=== PATIENT | male | born 1985 | race Caucasian/White ===

== ENCOUNTER 2025-10-03 15:41 | Emergency (ER) | payer OTHER, SELFPAY ==
[2025-10-03 16:26] VITALS: BP 145/90; PULSE 73; RESP 19; TEMP 36.7; O2SAT 99; BMI 25.9
--- NOTE | 2025-10-03 16:40 | EDNOTE_ITS ---
<Statement entered by Joan Radford MD - 10/25/25 06:02> As co-signing physician, I was present and available for consult prn. I concur with the plan and care as documented by the midlevel provider. ED Skin Abcess FB-RME/HPI General Chief complaint: Skin/Abscess/Foreign Body Stated complaint: PUNCTURE WOUND Time Seen by Provider: 10/03/25 16:40 Arrival date/time: 10/03/25 15:41 This is a 40-year-old male that comes into the emergency room with complaint of puncture wound to the right thumb. 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 Patient states that several other inmates had punctured their finger on the same manuel wire and he also cut himself on the manuel wire. Patient states he immediately cleaned the wound but is concerned because other inmates that could possibly have HIV or hepatitis also cut themselves in the same [place] wire. Patient would like prophylactic treatment for puncture exposure. Related Data Previous Rx's ?Medication ?Instructions ?Recorded doxycycline hyclate 100 mg tablet 100 mg PO BID #14 ta bs 10/03/25 emtricitabine 200 mg-tenofovir 1 tab PO QDAY #28 tabs 10/03/25 disoproxil fumarate 300 mg tablet (Truvada) raltegravir 400 mg tablet 400 mg PO BID 28 days #56 ta bs 10/03/25 Allergies Allergy/AdvReac Type Severity Reaction Status Date / Time No Known Allergies Allergy Verified 10/03/25 15:44 Review of Systems Review of Systems Systems Reviewed: All systems reviewed, normal except as documented Past Medical History Past Medical History Comments PMH COMMENT: Denies ED Exam Narrative Physical exam: VITAL SIGNS: Reviewed. GENERAL APPEARANCE: Alert and interactive, follows commands, no acute distress HEAD AND FACE: Non-traumatic. ENT: PERRL, conjuctiva pink and clear, eyelid no trauma, Mucous membrane moist. NECK: Supple, nontender, no nuchal rigidity. CHEST: No tenderness, no crepitus, no paradoxical movement, no retractions. LUNGS: breathing even and unlabored HEART: Regular rate, cap refill less than 2 seconds ABDOMEN: Soft NEUROLOGICAL: Gross motor function intact sensory function intact, Appropriate for age. MUSCULOSKELETAL: full range of motion. Ambulatory EXTREMITIES: No redness no swelling no skin breakdown on bilateral foot and leg. Distal neurovascular status intact bilateral foot SKIN: Color pink, dry, approximately 2 to 3 mm laceration superficial to right thumb. Course Quality Measures none Orders Category Date Time Status HIV RAPID [HIV (1&2) Antibody Rapid] Stat Lab 10/03/25 17:39 Completed Hepatitis Acute Panel Stat Lab 10/03/25 17:39 Completed Hepatitis B Core Antibody IgM Stat Lab 10/03/25 17:39 Received Hepatitis B Surface Antigen Stat Lab 10/03/25 17:39 Received Hepatitis C Antibody Stat Lab 10/03/25 17:39 Received EMTRICITABINE/TENOFOVIR Dspk#3 [Truvada Dspk #3] Med 10/03/25 17:17 Discontinued 1 dspk PO X1 ONE RALTEGRAVIR POTASSIUM Dspk#6 [Isentress Dspk#6] Med 10/03/25 18:15 Discontinued 1 tab PO X1 ONE TET,DIP/PERT AC (Adult)-Tdap [Boostrix Adult (Tdap) Med 10/03/25 17:13 Discontinued Vacc] 0.5 ml IMI .ONCE ONE Vital Signs Vital signs: Vital Signs Temperature 98.0 F 10/03/25 16:26 Pulse Rate 73 10/03/25 16:26 Respiratory Rate 19 10/03/25 16:26 Blood Pressure 145/90 H 10/03/25 16:26 Pulse Oximetry (%) 99 10/03/25 16:26 Oxygen Delivery Method Room Air 10/03/25 16:26 Skin / Abscess / Foreign Body MDM Narrative MDM Narrative:: Patient would like to be treated with prophylactic medication postexposure to possible HIV hepatitis. Spoke to pharmacy and clarified medications. Patient was given prophylactic exposure medication and also a tetanus shot. Patient told to follow-up with Worker's [employer]. I also gave patient prophylactic medication doxycycline for his finger. Patient verbalized understanding patient will follow-up with blood results with primary doctor. Dragon dictation: Although this document has been carefully reviewed, there may still be some phonetic and other typographical errors. These errors are purely grammatical due to imperfections in the software program and should not be construed in any way to compromise the substance of the patient's medical care during this visit. Patient data External records reviewed:: [facility] previous records Clinical information provided by:: patient Social determinants that could affect healthcare access:: none Patient has the following chronic illnesses:: see note How is presenting disease/condition affected by chronic disease/condition?: no chronic disease Evaluation data The following diagnostics were reviewed and interpreted by me:: other (specify) (none ) Lab and/or radiology exams considered but not ordered:: see note Interpretation Summary: see note Medications / Prescriptions Medications or Prescriptions considered but not ordered:: none Medication administrations:: Medication Administration History Discontinued Medications Diphtheria/Tetanus/Acell Pertussis (Diphth,Pertuss(Acell),Tet Vac 0.5 Ml Syr- Adult) 0.5 ml IMi .ONCE ONE Stop: 10/03/25 17:14 Last Admin: 10/03/25 17:57 Dose: 0.5 ml Documented By: PRIMO Emtricitabine/Tenofovir (Emtricitabine 200 Mg/Tenofovir 300 Mg Tab #3pk) 1 dspk PO X1 ONE Stop: 10/03/25 17:18 Last Admin: 10/03/25 18:04 Dose: 1 dspk Documented By: PRIMO Raltegravir (Raltegravir Potassium 400 Mg Tab #6pk) 1 tab PO X1 ONE Stop: 10/03/25 18:16 Last Admin: 10/03/25 18:12 Dose: 1 tab Documented By: PRIMO Comments: PT GIVEN 5 TABS TO TAKE HOME see mar Consultations Consultation(s) initiated? (list below): No Diagnosis Skin/Abscess Differential Diagnosis: cellulitis and other (puncture wound, abscess) Most likely diagnosis given after review of the tests above:: puncture wound Admission Indicated Admission indicated?: not indicated Admission Request Was there a request for admission?: No Disposition Plan Disposition Plan: Discharge Discharge Attestation Discharge Attestation: The patient and all family members were given an opportunity to ask questions and understood the discharge instructions. Discharge instructions specifically effects, indications for sooner follow up or return to the emergency department, and the expected course of current diagnosis. Patient condition: Stable Discharge Plan Plan Patient Disposition: HOME (Self Care) Patient condition on transfer: Stable Prescriptions/Referrals Prescriptions/Med Rec: New emtricitabine-tenofovir (TDF) [Truvada] 200-300 mg tablet 1 tab PO QDAY Qty: 28 0RF raltegravir 400 mg tablet 400 mg PO BID 28 Days Qty: 56 0RF doxycycline hyclate 100 mg tablet 100 mg PO BID Qty: 14 0RF Problem List Clinical Impression: Encounter for HIV pre-exposure prophylaxis Patient/Caregiver Discharge Instructions Discharge Activity: activity as tolerated Education Materials: Bloodborne Pathogens If You're ... Additional Instructions: Follow up with primary provider in 1-2 days. Come back to ED if symptoms change or worsen Print Language: Ug[place]an Stand Alone Forms: Mickie Award Info., Patient Portal Info Letter PA/AGATE SETTER Supervising Physician PA/AGATE SETTER Supervising Physician: [email or web address]
[2025-10-03] MEDS: DIPHTH,PERTUSS(ACELL),TET VAC 0.5 ML SYR- ADULT IMi (17:57)
[2025-10-03] MEDS: EMTRICITABINE 200 MG/TENOFOVIR 300 MG TAB #3PK 1 DSPK PO (18:04)
[2025-10-03] MEDS: RALTEGRAVIR POTASSIUM 400 MG TAB #6PK 1 TAB PO (18:12)
[2025-10-03 18:31] LABS: HIV (1&2) Antibody Rapid Non-Reactive
[2025-10-03 19:39] LABS: Hepatitis A Antibody IgM Non Reactive (Non React); Hepatitis B Core Antibody IgM Non Reactive (Non React); Hepatitis B Surface Antigen Non Reactive (Non React); Hepatitis C Antibody Non Reactive (Non React)
== END 2025-10-03 18:29 | disposition home or self-care (01) ==
LOC: SERX 18:50
PROVIDERS: Emergency Provider Nurse Practitioner Family
DX: S61.031A Puncture wound without foreign body of right thumb without damage to nail, initial encounter (principal); W45.8XXA Other foreign body or object entering through skin, initial encounter
CPT/HCPCS: 36415; 80074; 86703; 86705; 86803; 87340; 90471; 90715; 99282; J8499